=== PATIENT | female | born 1940 | race Caucasian/White ===

== ENCOUNTER 2024-04-28 16:19 | Emergency (ER) | payer MEDICARE, SELFPAY ==
[2024-04-28] VITALS (10 sets, daily range): BP systolic 107–136; BP diastolic 54–64; PULSE 68–78; RESP 9–21; TEMP 36.2–36.4; O2SAT 95–99; BMI 31.8
--- NOTE | 2024-04-28 17:01 | EKG12_ITS ---
Test Reason : DIZZINESS Blood Pressure : */* mmHG Vent. Rate : 75 BPM Atrial Rate : 75 BPM P-R Int : 152 ms QRS Dur : 68 ms QT Int : 402 ms P-R-T Axes : 45 -4 27 degrees QTcB Int : 448 ms Sinus rhythm with Premature atrial complexes nst wave changes Abnormal ECG Confirmed by Talha Monroy ([id number]), school photograph editor SHIRLEY BOOKER ([id number]) on 04/29/2024 8:23:36 AM Referred By: SUKI Confirmed By: Talha Monroy
--- NOTE | 2024-04-28 17:12 | EX.ED.DYSGE1 ---
HPI <DANELLE Corona - Last Filed: 04/28/24 21:10> History of Present Illness Chief Complaint: Syncope Narrative Narrative: 83-year-old female with PMH of HTN, HLD presents after a presyncopal episode. She went to lunch with her and friends and states her vision felt slightly blurry during lunch. They walked outside and window shop for about 10 minutes. Inside the store she felt hot and when exiting she felt nauseated and lightheaded. She was walking towards a bench but thought she was not going to make it before passing out so she laid down on the concrete. There was no fall. Her friend states she looked pale but do not think she fully passed out. She was brought in by EMS for evaluation and states after being transferred to the ambulance she lost control of her bowels. No bladder incontinence. There was no tongue bite or seizure activity. She started to feel better on the way here and now feels back to normal. She denies any recent chest pain or shortness of breath. No fever chills or upper respiratory symptoms. No melena, hematochezia, dysuria or frequency. PFSH <DANELLE Corona - Last Filed: 04/28/24 21:10> [facility] Medical History (Updated 04/28/24 @ 20:45 by DANELLE Corona) Hypertension Medical History no medical history Home Medications ?Medication ?Instructions ?Recorded ?Last Taken ?Type atorvastatin 40 mg tablet 40 mg PO QHS 04/28/24 04/27/24 History cholecalciferol (vitamin D3) 50 50 mcg PO DAILY 04/28/24 04/28/24 History mcg (2,000 unit) tablet (D3 DOTS) levocetirizine 5 mg tablet (24HR 5 mg PO QHS 04/28/24 04/27/24 History Allergy Relief) lisinopril 20 mg tablet 20 mg PO DAILY 04/28/24 04/28/24 History Allergy/AdvReac Type Severity Reaction Status Date / Time No Known Allergies Allergy Verified 04/28/24 16:28 Social History Smoking Status: Never smoker ROS <DANELLE Corona - Last Filed: 04/28/24 21:10> ROS ED ROS Narrative Constitutional: Negative for fever, chills, malaise. CVS: Negative for palpitations, chest pain. Respiratory: Negative for shortness of breath, cough. GI: Negative for abdominal pain, vomiting, diarrhea. : Negative for dysuria, frequency. Neuro: Negative for headache. EXAM <DANELLE Corona - Last Filed: 04/28/24 21:10> Physical Exam Narrative Exam Narrative: CONST: Patient sitting in no acute distress. EYES: Normal inspection. ENT: Normal inspection, moist mucous membranes. NECK: Normal inspection. RESP: No respiratory distress, CTAB. CVS: Regular rate and rhythm, no murmur, no gallop. ABD: Soft and nontender, no guarding or rebound, nondistended. SKIN: Color normal, no rash, warm, dry, intact. EXTREMITIES: Normal appearance, no pedal edema. NEURO: Alert and answering questions appropriately. PSYCH: Normal affect. Const Vital Signs: 04/28/24 16:26 04/28/24 16:30 04/28/24 17:20 Temperature 97.5 F L Temperature Source Oral Pulse Rate 72 72 Respiratory Rate 9 L 17 Respiratory Pattern Normal Blood Pressure 108/64 107/54 L Blood Pressure Mean 78 71 Pulse Ox 96 95 Oxygen Delivery Method Room Air Room Air 04/28/24 18:08 04/28/24 18:15 04/28/24 18:30 Temperature Temperature Source Pulse Rate 70 68 78 Respiratory Rate 16 12 17 Respiratory Pattern Blood Pressure Blood Pressure Mean Pulse Ox 95 98 98 Oxygen Delivery Method 04/28/24 18:45 04/28/24 18:52 04/28/24 19:00 Temperature 97.6 F L Temperature Source Pulse Rate 74 72 76 Respiratory Rate 16 21 H 18 Respiratory Pattern Blood Pressure 136/59 H 136/59 H Blood Pressure Mean 83 84 Pulse Ox 99 99 99 Oxygen Delivery Method 04/28/24 20:00 04/28/24 21:00 Temperature 97.1 F L Temperature Source Pulse Rate 70 70 Respiratory Rate 17 17 Respiratory Pattern Blood Pressure 135/60 H 133/61 H Blood Pressure Mean 85 85 Pulse Ox 97 97 Oxygen Delivery Method Room Air <Dr. Jose Luis Pardo DO - Last Filed: 04/30/24 12:16> Physical Exam Const Vital Signs: 04/28/24 16:26 04/28/24 16:30 04/28/24 17:20 Temperature 97.5 F L Temperature Source Oral Pulse Rate 72 72 Respiratory Rate 9 L 17 Respiratory Pattern Normal Blood Pressure 108/64 107/54 L Blood Pressure Mean 78 71 Pulse Ox 96 95 Oxygen Delivery Method Room Air Room Air 04/28/24 18:08 04/28/24 18:15 04/28/24 18:30 Temperature Temperature Source Pulse Rate 70 68 78 Respiratory Rate 16 12 17 Respiratory Pattern Blood Pressure Blood Pressure Mean Pulse Ox 95 98 98 Oxygen Delivery Method 04/28/24 18:45 04/28/24 18:52 04/28/24 19:00 Temperature 97.6 F L Temperature Source Pulse Rate 74 72 76 Respiratory Rate 16 21 H 18 Respiratory Pattern Blood Pressure 136/59 H 136/59 H Blood Pressure Mean 83 84 Pulse Ox 99 99 99 Oxygen Delivery Method 04/28/24 20:00 04/28/24 21:00 Temperature 97.1 F L Temperature Source Pulse Rate 70 70 Respiratory Rate 17 17 Respiratory Pattern Blood Pressure 135/60 H 133/61 H Blood Pressure Mean 85 85 Pulse Ox 97 97 Oxygen Delivery Method Room Air [facility] <DANELLE oCrona - Last Filed: 04/28/24 21:10> [facility] Narrative Medical decision making narrative: History gathered from: Patient and spouse Differential includes but not limited to orthostatic hypotension, vasovagal, arrhythmia, NAWAF Patient was walking and felt flushed and lightheaded and had a presyncopal episode. She avoided passing out by lying on the ground. There was no fall or injury. Sh feels back to baseline. She is awake alert no distress. GCS 15. Vital signs stable?BP 108/64, HR 72. Overall her exam is benign. CBC shows WBC of 11.2, otherwise normal. Electrolytes are unremarkable, BUN 36, creatinine 1.4. Outside records show her baseline is 1.2. EKG is sinus rhythm without ischemia and serial troponins are 16 and 12. After IV fluids her repeat vitals show BP of 133/61 and HR of 70. She was able to ambulate the length of the hallway and remained asymptomatic. I discussed return precautions, recommended follow-up with PCP, and she was discharged in stable condition. Lab Data Attestation: I reviewed the patient's lab results. Labs: Laboratory Results - last 24 hr 04/28/24 04/28/24 04/28/24 17:24 17:53 18:46 WBC 11.2 H RBC 4.59 Hgb 13.2 Hct 41.3 MCV 90.0 MCH 28.8 MCHC 32.0 RDW Std Deviation 45.8 H RDW Coeff of Terri 14.1 Plt Count 351 MPV 10.7 Immature Gran % (Auto) 0.400 Neut % (Auto) 59.7 Lymph % (Auto) 27.6 Beauregard % (Auto) 8.8 Eos % (Auto) 2.8 Baso % (Auto) 0.7 Absolute Neuts (auto) 6.7 Absolute Lymphs (auto) 3.09 Nucleated RBC % 0 Sodium 140 Cancelled Potassium 4.2 Cancelled Anion Gap 15 Cancelled BUN 36 H Cancelled Creatinine 1.4 H Cancelled Estim Creat Clear Calc 35.55 Est GFR (MDRD) Non-Af 37 L Cancelled BUN/Creatinine Ratio 25.8 H Cancelled Glucose 125 H Cancelled Calcium 9.9 Cancelled Troponin T High Sens 16 H Delta Troponin T Troponin T Hi Sens 2 Hr Urine Color Yellow Urine Clarity Clear Urine pH 6.0 Ur Specific Tracy 1.020 Urine Protein 15 H Urine Glucose (UA) Normal Urine Ketones Negative Urine Occult Blood Negative Urine Nitrite Negative Urine Bilirubin Negative Urine Urobilinogen Normal Ur Leukocyte Esterase 500 H Urine RBC 0 SEEN Urine WBC 0-5 SEEN Ur Squamous Epith Cells 0-5 SEEN Urine Bacteria RARE Urine Mucus 0 SEEN 04/28/24 19:35 WBC RBC Hgb Hct MCV MCH MCHC RDW Std Deviation RDW Coeff of Terri Plt Count MPV Immature Gran % (Auto) Neut % (Auto) Lymph % (Auto) Beauregard % (Auto) Eos % (Auto) Baso % (Auto) Absolute Neuts (auto) Absolute Lymphs (auto) Nucleated RBC % Sodium Potassium Anion Gap BUN Creatinine Estim Creat Clear Calc Est GFR (MDRD) Non-Af BUN/Creatinine Ratio Glucose Calcium Troponin T High Sens Delta Troponin T 3 Troponin T Hi Sens 2 Hr 12 Urine Color Urine Clarity Urine pH Ur Specific Tracy Urine Protein Urine Glucose (UA) Urine Ketones Urine Occult Blood Urine Nitrite Urine Bilirubin Urine Urobilinogen Ur Leukocyte Esterase Urine RBC Urine WBC Ur Squamous Epith Cells Urine Bacteria Urine Mucus Radiography Diagnostic Testing: Clinical Impression(s) from Imaging Studies Chest X-Ray 04/28/24 17:35 IMPRESSION: NEGATIVE SINGLE VIEW OF THE CHEST. Reading Location: [place] [id number] ED attending interpretation of 1 view chest x-ray shows normal heart size and no acute infiltrate. EKG Initial EKG: Attestation: I personally reviewed and interpreted this EKG as follows: Interpretation: Sinus Rhythm and No Acute Injury Pattern Comments: Sinus rhythm with PACs at 75 bpm No acute ischemic changes <Dr. Jose Luis Pardo, DO - Last Filed: 04/30/24 12:16> MDM MDM Narrative Medical decision making narrative: History gathered from: Patient and spouse Differential includes but not limited to orthostatic hypotension, vasovagal, arrhythmia, NAWAF Patient was walking and felt flushed and lightheaded and had a presyncopal episode. She avoided passing out by lying on the ground. There was no fall or injury. Sh feels back to baseline. She is awake alert no distress. GCS 15. Vital signs stable?BP 108/64, HR 72. Overall her exam is benign. CBC shows WBC of 11.2, otherwise normal. Electrolytes are unremarkable, BUN 36, creatinine 1.4. Outside records show her baseline is 1.2. EKG is sinus rhythm without ischemia and serial troponins are 16 and 12. After IV fluids her repeat vitals show BP of 133/61 and HR of 70. She was able to ambulate the length of the hallway and remained asymptomatic. I discussed return precautions, recommended follow-up with PCP, and she was discharged in stable condition. Supervisory Physician Note Patient was seen and examined with the Advanced Practice Provider. Nursing notes and vital signs have been reviewed. Pertinent old records have been reviewed. I agree with the essential elements of the HONG's history, physical exam, assessment, and plan. The differential diagnosis and management options were discussed with the HONG. I participated in determining and agree with the management, procedures, final impression and disposition as documented. See changes noted by me. Please see addendum or separate note for any additional details. Gen: A&O x3, NAD Head: Normocephalic, atraumatic Eyes: No sclera icterus, conjunctiva clear, PERRL, EOMI ENT: Moist mucous membranes Neck: Trachea midline, No JVD, no carotid bruits CV: RRR, no murmurs, no peripheral edema Resp: Lungs CTA BL, no w/r/c GI: Abd soft, non-distended, non-tender, no r/r/g Musc: Full ROM, no deformity Skin: Warm, dry Neuro: Alert, oriented, grossly intact, sensation intact Psych: Cooperative, appropriate mood and affect Impression: 1. Presyncope 2. Renal insufficiency Lab Data Labs: Laboratory Results - last 24 hr 04/28/24 04/28/24 04/28/24 17:24 17:53 18:46 WBC 11.2 H RBC 4.59 Hgb 13.2 Hct 41.3 MCV 90.0 MCH 28.8 MCHC 32.0 RDW Std Deviation 45.8 H RDW Coeff of Terri 14.1 Plt Count 351 MPV 10.7 Immature Gran % (Auto) 0.400 Neut % (Auto) 59.7 Lymph % (Auto) 27.6 Beauregard % (Auto) 8.8 Eos % (Auto) 2.8 Baso % (Auto) 0.7 Absolute Neuts (auto) 6.7 Absolute Lymphs (auto) 3.09 Nucleated RBC % 0 Sodium 140 Cancelled Potassium 4.2 Cancelled Anion Gap 15 Cancelled BUN 36 H Cancelled Creatinine 1.4 H Cancelled Estim Creat Clear Calc 35.55 Est GFR (MDRD) Non-Af 37 L Cancelled BUN/Creatinine Ratio 25.8 H Cancelled Glucose 125 H Cancelled Calcium 9.9 Cancelled Troponin T High Sens 16 H Delta Troponin T Troponin T Hi Sens 2 Hr Urine Color Yellow Urine Clarity Clear Urine pH 6.0 Ur Specific Tracy 1.020 Urine Protein 15 H Urine Glucose (UA) Normal Urine Ketones Negative Urine Occult Blood Negative Urine Nitrite Negative Urine Bilirubin Negative Urine Urobilinogen Normal Ur Leukocyte Esterase 500 H Urine RBC 0 SEEN Urine WBC 0-5 SEEN Ur Squamous Epith Cells 0-5 SEEN Urine Bacteria RARE Urine Mucus 0 SEEN 04/28/24 19:35 WBC RBC Hgb Hct MCV MCH MCHC RDW Std Deviation RDW Coeff of Terri Plt Count MPV Immature Gran % (Auto) Neut % (Auto) Lymph % (Auto) Beauregard % (Auto) Eos % (Auto) Baso % (Auto) Absolute Neuts (auto) Absolute Lymphs (auto) Nucleated RBC % Sodium Potassium Anion Gap BUN Creatinine Estim Creat Clear Calc Est GFR (MDRD) Non-Af BUN/Creatinine Ratio Glucose Calcium Troponin T High Sens Delta Troponin T 3 Troponin T Hi Sens 2 Hr 12 Urine Color Urine Clarity Urine pH Ur Specific Tracy Urine Protein Urine Glucose (UA) Urine Ketones Urine Occult Blood Urine Nitrite Urine Bilirubin Urine Urobilinogen Ur Leukocyte Esterase Urine RBC Urine WBC Ur Squamous Epith Cells Urine Bacteria Urine Mucus Radiography Diagnostic Testing: Clinical Impression(s) from Imaging Studies Chest X-Ray 04/28/24 17:35 IMPRESSION: NEGATIVE SINGLE VIEW OF THE CHEST. Reading Location: [place] [id number] Discharge Plan Triage Chief Complaint: Syncope ED Midlevel Provider: Demetria Valentin ED Provider: Jose Luis Pardo Dx/Rx/DC Orders Clinical Impression: Pre-syncope Instructions: Causes of Syncope Prescriptions: No Action atorvastatin 40 mg tablet 40 mg PO QHS lisinopril 20 mg tablet 20 mg PO DAILY cholecalciferol (vitamin D3) [D3 DOTS] 50 mcg (2,000 unit) tablet 50 mcg PO DAILY levocetirizine [24HR Allergy Relief] 5 mg tablet 5 mg PO QHS Primary Care Provider: SHAKILA CAO Referrals: SHAKILA CAO [Other] Activity Restrictions/Additional Instructions: Your tests overall are normal. I recommend you follow-up with your primary care doctor. If you have new or worsening symptoms please come back for reevaluation Print Language: Estonian Disposition Disposition: Home, Self Care Discharge Date/Time: 04/28/24 21:12
--- NOTE | 2024-04-28 17:35 | RAD_ITS ---
PROCEDURE: CHEST 1 VIEW (PORTABLE) REASON FOR EXAM: Syncope. TECHNIQUE: Frontal view of the chest. COMPARISON: None. FINDINGS: The cardiac and mediastinal contours are normal. The lungs are clear. RAD/Chest 1 View (Portable) IMPRESSION: NEGATIVE SINGLE VIEW OF THE CHEST. Reading Location: [place] [id number]
[2024-04-28 17:37] LABS: Absolute Lymphocyte Count 3.09 X10^3/uL (0.83-4.51); Absolute Neutrophil Count 6.7 X10^3/uL (2.0-7.7); Basophil# 0.08 X10^3/uL; Basophil% 0.7 % (0-1); Eosinophil# 0.31 X10^3/uL; Eosinophils% 2.8 % (0-5); Hematocrit 41.3 % (37-47); Hemoglobin 13.2 g/dL (12.0-15.0); Lymphocyte # 3.09 X10^3/ul (0.83-4.51); Lymphocyte % 27.6 % (19-41); Mean Corpuscular Hgb 28.8 pg (27.0-32.0); Mean Platelet Vol. 10.7 fl (6.2-12.0); Monocyte# 0.98 X10^3/uL; Monocyte% 8.8 % (0-10); NRBC Flagged by Analyzer 0 % (0-5); Neutrophil # 6.68 X10^3/uL (2.7-7.7); Neutrophil % 59.7 % (47-70); Platelet Count 351 K/mm3 (150-450); RBC Distribution Width CV 14.1 % (11.6-14.6); RBC Distribution Width SD 45.8 fl (35.1-43.9); Red Blood Count 4.59 M/mm3 (4.2-5.4); White Blood Count 11.2 K/mm3 (4.4-11.0)
[2024-04-28] MEDS: 0.9% Normal Saline (1000mL) 1,000 ML 999 ML IV (17:52)
[2024-04-28 18:02] LABS: Mucous, Urine 0 SEEN /hpf (<or=2+)
[2024-04-28 18:08] LABS: Troponin T High Sensitivity 16 ng/L (<=14)
[2024-04-28 18:16] LABS: Color, Urine Yellow (Yellow); Glucose, Dipstick Normal (Normal); Ketone-Dipstick Negative (Negative); Leukocyte Esterase-Dipstick 500 /ul (Negative); Nitrite-Dipstick Negative (Negative); Occult Blood-Urine Negative /ul (Negative); Protein-Dipstick 15 mg/dl (Negative); Urine Bilirubin Dipstick Negative (Negative); Urine Clarity Clear (Clear); Urine Urobilinogen Normal (Normal)
[2024-04-28 18:47] LABS: Red Blood Cells-Urine 0 SEEN /hpf (0-5); White Blood Cells 0-5 SEEN /hpf (0-5)
[2024-04-28 18:48] LABS: Bacteria RARE /hpf (None Seen); Squamous Epithelial Cells - UA 0-5 SEEN /hpf (5-10)
[2024-04-28 20:03] LABS: TROPONIN VARIANCE 2 HR 3; Troponin T High Sens 2 HR 12 ng/L (<=14)
[2024-04-28 20:32] LABS: Anion Gap 15 (5-15); BUN 36 mg/dL (4-19); BUN/Creat Ratio 25.8 RATIO (10-20); Calcium 9.9 mg/dL (7.6-11.0); Carbon Dioxide 22.5 mmol/L (22.0-29.0); Chloride 103 mmol/L (96-108); Creatinine, Serum 1.4 mg/dL (0.6-1.0); EST Glomerular Filtration Rate 37 (>60); Estimated Creatinine Clearance 35.55 ml/min; Glucose 125 mg/dL (70-99); Potassium 4.2 mmol/L (3.3-5.1); Sodium Level 140 mmol/L (133-145)
== END 2024-04-28 21:12 | disposition home or self-care (01) ==
PROVIDERS: Physician Assistant; Emergency Provider Surgery; Visit Provider Surgery
DX: R55 Syncope and collapse (principal); N28.9 Disorder of kidney and ureter, unspecified; I10 Essential (primary) hypertension; E78.5 Hyperlipidemia, unspecified
CPT/HCPCS: 71045; 80048; 81001; 84484; 85025; 93005; 96360; 96361; 99285; A4216